=== PATIENT | male | born 1940 | race Two or more races ===

== ENCOUNTER 2017-04-28 17:32 | Inpatient (IN) | payer MEDICARE, BC ==
[2017-04-28] MEDS ORDERED: ACETAMINOPHEN 650MG/20.3ML CUP GTB (21:00)
[2017-04-28] MEDS ORDERED: morphine 2 MG INJ IV (21:30)
[2017-04-28] MEDS ORDERED: ZOLPIDEM 5 MG TAB PO (21:30)
[2017-04-28] MEDS ORDERED: NITROGLYCERIN (SL) 0.4 MG TAB SL (21:30)
[2017-04-28] MEDS: DULOXETINE 30 MG CAP DR PO (21:30)
[2017-04-28] MEDS ORDERED: ONDANSETRON 4 MG INJ IV (21:30)
[2017-04-28] MEDS ORDERED: ACETAMINOPHEN 325 MG TAB PO (21:30)
[2017-04-28] MEDS ORDERED: DIPHENHYDRAMINE 50 MG INJ IV (21:30)
[2017-04-28] MEDS ORDERED: ONDANSETRON 4 MG TAB PO (21:30)
[2017-04-28] MEDS: BUDESONIDE (NEB) 0.5MG/2ML AMP NEB (21:58)
[2017-04-28] MEDS: [UNRECOGNIZED DRUG - REMARK] XX (22:00)
[2017-04-29] MEDS ORDERED: ZOLPIDEM 5 MG TAB GTB (00:11)
[2017-04-29 00:52] LABS: ADD UMIC YES; UR ASCORBIC ACID NEGATIVE (NEGATIVE); UR BACTERIA FEW /HPF (NONE SEEN); UR BILIRUBIN (Dip) NEGATIVE (NEGATIVE); UR BLOOD (Dip) 2+ mg/dL (NEGATIVE); UR CLARITY SLIGHTLY CLOUDY (CLEAR); UR COLOR YELLOW (YELLOW); UR GLUCOSE (Dip) NEGATIVE (NEGATIVE); UR KETONES (Dip) NEGATIVE (NEGATIVE); UR LEUKOCYTE ESTERASE (Dip) TRACE Leu/ul (NEGATIVE); UR NITRITE (Dip) NEGATIVE (NEGATIVE); UR RBC 3 /HPF (0-5); UR SPECIFIC GRAVITY (Dip) 1.013 (1.003-1.030); UR TOTAL PROTEIN (Dip) 2+ mg/dl (NEGATIVE); UR UROBILINOGEN (Dip) NEGATIVE (NEGATIVE); UR WBC 38 /HPF (0-5)
[2017-04-29] MEDS ORDERED: PANTOPRAZOLE (EC) 40 MG TAB PO (06:00)
[2017-04-29] MEDS: [UNRECOGNIZED DRUG - REMARK] XX ×2 (06:00→13:35)
[2017-04-29] MEDS: PANTOPRAZOLE 40 MG INJ IV ×2 (06:09→18:15)
[2017-04-29] MEDS: BUDESONIDE (NEB) 0.5MG/2ML AMP NEB ×2 (08:14→19:24)
[2017-04-29] MEDS ORDERED: BISACODYL 10 MG SUPP PR (08:30)
[2017-04-29] MEDS ORDERED: ACETAMINOPHEN 650MG/20.3ML CUP PO (08:30)
[2017-04-29] MEDS ORDERED: LACTULOSE 30ML CUP PO (08:30)
[2017-04-29 08:56] LABS: ADD MAN DIFF? NO
[2017-04-29 09:00] LABS: WHITE BLOOD COUNT 13.7 10^3/ul (4.8-10.8)
[2017-04-29 09:00] LABS: BASOPHILS % 0.2 % (0.0-2.0); EOSINOPHILS # 0.1 10^3/ul (0.0-0.5); EOSINOPHILS % 0.4 % (0.0-7.0); HEMATOCRIT 28.3 % (42.0-52.0); HEMOGLOBIN 9.6 g/dl (14.0-18.0); LYMPHOCYTES # 3.3 10^3/ul (0.8-2.9); LYMPHOCYTES % 24.3 % (15.0-51.0); MEAN CORPUSCULAR HGB CONC 33.9 g/dl (32.0-37.0); MEAN CORPUSCULAR VOLUME 91.3 fl (82.0-101.0); MEAN PLATELET VOLUME 9.9 fl (7.4-10.4); MONOCYTES % 7.1 % (0.0-11.0); NEUTROPHIL # 9.3 10^3/ul (1.6-7.5); NEUTROPHILS % 67.6 % (39.0-77.0); PLATELET COUNT 336 10^3/UL (140-415); POSITIVE DIFF @See below; RED CELL DISTRIBUTION WIDTH 15.7 % (11.5-14.5)
[2017-04-29] MEDS ORDERED: MAGNESIUM HYDROXIDE 30ML CUP PO (09:00)
[2017-04-29] MEDS ORDERED: ONDANSETRON 4 MG TAB GTB (09:00)
[2017-04-29 09:36] LABS: ALANINE AMINOTRANSFERASE 38 IU/L (13-69); ALBUMIN 3.3 g/dl (3.3-4.9); ALBUMIN/GLOBULIN RATIO 0.89; ALKALINE PHOSPHATASE 135 IU/L (42-121); ANION GAP 16 (8-16); ASPARTATE AMINO TRANSFERASE 28 IU/L (15-46); BILIRUBIN,INDIRECT 0.7 mg/dl (0-1.1); BILIRUBIN,TOTAL 0.7 mg/dl (0.2-1.3); BLOOD UREA NITROGEN 12 mg/dl (7-20); CALCIUM 8.7 mg/dl (8.4-10.2); CARBON DIOXIDE 21 mmol/L (21-31); CHLORIDE 114 mmol/L (97-110); CREATININE 0.81 mg/dl (0.61-1.24); GLUCOSE 121 mg/dl (70-220); POTASSIUM 3.1 mmol/L (3.5-5.1); SODIUM 148 mmol/L (135-144)
[2017-04-29] MEDS: DOCUSATE SODIUM 10 MG/ML (10ML CUP) GTB ×2 (09:44→21:41)
[2017-04-29] MEDS: HEPARIN 5,000 UNIT/0.5 ML VIAL SC ×3 (09:53→21:50)
[2017-04-29] MEDS: LEVOFLOXACIN 500 MG TAB PO (12:57)
[2017-04-29] MEDS: CREON (12k-38k-60k) 1 CAP PO (18:15)
[2017-04-29] MEDS: DULOXETINE 30 MG CAP DR PO (18:15)
[2017-04-29] MEDS: SENNA TAB PO (21:41)
[2017-04-30] MEDS: LEVOFLOXACIN 500 MG TAB PO (06:04)
[2017-04-30] MEDS: PANTOPRAZOLE 40 MG INJ IV ×2 (06:04→19:07)
[2017-04-30] MEDS: HEPARIN 5,000 UNIT/0.5 ML VIAL SC ×3 (06:23→21:53)
[2017-04-30 07:55] LABS: ADD MAN DIFF? NO
[2017-04-30 08:06] LABS: WHITE BLOOD COUNT 12.7 10^3/ul (4.8-10.8)
[2017-04-30 08:06] LABS: BASOPHILS % 0.2 % (0.0-2.0); EOSINOPHILS # 0.1 10^3/ul (0.0-0.5); EOSINOPHILS % 0.7 % (0.0-7.0); HEMATOCRIT 26.9 % (42.0-52.0); HEMOGLOBIN 9.2 g/dl (14.0-18.0); LYMPHOCYTES # 3.2 10^3/ul (0.8-2.9); LYMPHOCYTES % 25.3 % (15.0-51.0); MEAN CORPUSCULAR HEMOGLOBIN 30.8 pg (29.0-33.0); MEAN CORPUSCULAR HGB CONC 34.2 g/dl (32.0-37.0); MEAN PLATELET VOLUME 9.6 fl (7.4-10.4); MONOCYTE # 0.9 10^3/ul (0.3-0.9); NEUTROPHIL # 8.4 10^3/ul (1.6-7.5); NEUTROPHILS % 66.5 % (39.0-77.0); PLATELET COUNT 322 10^3/UL (140-415); POSITIVE DIFF @See below; RED BLOOD COUNT 2.99 10^6/ul (4.70-6.10); RED CELL DISTRIBUTION WIDTH 14.6 % (11.5-14.5)
[2017-04-30 08:31] LABS: ANION GAP 15 (8-16); BLOOD UREA NITROGEN 12 mg/dl (7-20); CALCIUM 8.3 mg/dl (8.4-10.2); CARBON DIOXIDE 20 mmol/L (21-31); CHLORIDE 111 mmol/L (97-110); CREATININE 0.76 mg/dl (0.61-1.24); GLUCOSE 103 mg/dl (70-220); MAGNESIUM 1.3 mg/dl (1.7-2.5); PHOSPHORUS 3.3 mg/dl (2.5-4.9); SODIUM 143 mmol/L (135-144)
[2017-04-30 08:42] LABS: POTASSIUM 2.7 mmol/L (3.5-5.1)
[2017-04-30] MEDS: BUDESONIDE (NEB) 0.5MG/2ML AMP NEB ×2 (08:53→21:01)
[2017-04-30] MEDS: CREON (12k-38k-60k) 1 CAP PO ×3 (09:45→17:35)
[2017-04-30] MEDS: DOCUSATE SODIUM 10 MG/ML (10ML CUP) GTB ×2 (09:45→21:41)
[2017-04-30] MEDS: POTASSIUM CHLORIDE 20 MEQ POWDER FOR ORAL SOLN GTB ×2 (11:02→19:07)
[2017-04-30] MEDS: ACETAMINOPHEN 650MG/20.3ML CUP GTB ×2 (13:15→21:41)
[2017-04-30 16:35] LABS: POTASSIUM 3.4 mmol/L (3.5-5.1)
[2017-04-30] MEDS: DULOXETINE 30 MG CAP DR PO (19:07)
[2017-04-30] MEDS: SENNA TAB PO (21:41)
[2017-05-01 06:13] LABS: ADD MAN DIFF? NO
[2017-05-01 06:19] LABS: WHITE BLOOD COUNT 10.7 10^3/ul (4.8-10.8)
[2017-05-01 06:19] LABS: BASOPHILS % 0.2 % (0.0-2.0); EOSINOPHILS # 0.2 10^3/ul (0.0-0.5); EOSINOPHILS % 1.6 % (0.0-7.0); HEMATOCRIT 25.7 % (42.0-52.0); HEMOGLOBIN 8.9 g/dl (14.0-18.0); LYMPHOCYTES # 2.6 10^3/ul (0.8-2.9); LYMPHOCYTES % 23.9 % (15.0-51.0); MEAN CORPUSCULAR HEMOGLOBIN 31.1 pg (29.0-33.0); MEAN CORPUSCULAR HGB CONC 34.6 g/dl (32.0-37.0); MEAN CORPUSCULAR VOLUME 89.9 fl (82.0-101.0); MEAN PLATELET VOLUME 9.3 fl (7.4-10.4); MONOCYTE # 0.7 10^3/ul (0.3-0.9); MONOCYTES % 6.9 % (0.0-11.0); NEUTROPHIL # 7.2 10^3/ul (1.6-7.5); NEUTROPHILS % 66.8 % (39.0-77.0); PLATELET COUNT 331 10^3/UL (140-415); RED BLOOD COUNT 2.86 10^6/ul (4.70-6.10); RED CELL DISTRIBUTION WIDTH 14.5 % (11.5-14.5)
[2017-05-01 06:37] LABS: ANION GAP 14 (8-16); BLOOD UREA NITROGEN 12 mg/dl (7-20); CALCIUM 8.4 mg/dl (8.4-10.2); CARBON DIOXIDE 23 mmol/L (21-31); CHLORIDE 110 mmol/L (97-110); CREATININE 0.76 mg/dl (0.61-1.24); GLUCOSE 115 mg/dl (70-220); MAGNESIUM 1.4 mg/dl (1.7-2.5); PHOSPHORUS 3.1 mg/dl (2.5-4.9); POTASSIUM 3.4 mmol/L (3.5-5.1); SODIUM 144 mmol/L (135-144)
[2017-05-01] MEDS: PANTOPRAZOLE 40 MG INJ IV ×2 (07:01→18:20)
[2017-05-01] MEDS: LEVOFLOXACIN 500 MG TAB PO (07:01)
[2017-05-01] MEDS: HEPARIN 5,000 UNIT/0.5 ML VIAL SC ×3 (07:07→21:01)
[2017-05-01] MEDS: BUDESONIDE (NEB) 0.5MG/2ML AMP NEB ×2 (08:45→20:00)
[2017-05-01] MEDS: DOCUSATE SODIUM 10 MG/ML (10ML CUP) GTB ×2 (09:00→20:53)
[2017-05-01] MEDS: CREON (12k-38k-60k) 1 CAP PO ×3 (10:37→18:19)
[2017-05-01] MEDS: POTASSIUM CHLORIDE 20 MEQ POWDER FOR ORAL SOLN GTB ×2 (10:40→12:30)
[2017-05-01] MEDS: MAGNESIUM SULFATE 2 GM/50 ML 50 ML IVPB (10:40)
[2017-05-01] MEDS ORDERED: POTASSIUM CHLORIDE 20 MEQ POWDER FOR ORAL SOLN GTB (17:00)
[2017-05-01] MEDS: DULOXETINE 30 MG CAP DR PO (18:22)
[2017-05-01] MEDS: SENNA TAB PO (20:53)
[2017-05-02] MEDS: ACETAMINOPHEN 650MG/20.3ML CUP GTB ×2 (02:15→13:01)
[2017-05-02] MEDS: LEVOFLOXACIN 500 MG TAB PO (06:49)
[2017-05-02] MEDS: PANTOPRAZOLE 40 MG INJ IV ×2 (06:49→18:05)
[2017-05-02] MEDS: HEPARIN 5,000 UNIT/0.5 ML VIAL SC ×2 (06:56→13:20)
[2017-05-02 07:15] LABS: ADD MAN DIFF? NO
[2017-05-02 07:19] LABS: BASOPHILS % 0.2 % (0.0-2.0); EOSINOPHILS # 0.1 10^3/ul (0.0-0.5); EOSINOPHILS % 1.1 % (0.0-7.0); HEMATOCRIT 26.2 % (42.0-52.0); HEMOGLOBIN 8.9 g/dl (14.0-18.0); LYMPHOCYTES # 2.9 10^3/ul (0.8-2.9); LYMPHOCYTES % 24.1 % (15.0-51.0); MEAN CORPUSCULAR HEMOGLOBIN 30.7 pg (29.0-33.0); MEAN CORPUSCULAR VOLUME 90.3 fl (82.0-101.0); MEAN PLATELET VOLUME 9.6 fl (7.4-10.4); MONOCYTE # 0.9 10^3/ul (0.3-0.9); MONOCYTES % 7.3 % (0.0-11.0); NEUTROPHILS % 66.6 % (39.0-77.0); PLATELET COUNT 360 10^3/UL (140-415)
[2017-05-02 07:52] LABS: ANION GAP 17 (8-16); BLOOD UREA NITROGEN 10 mg/dl (7-20); CALCIUM 8.3 mg/dl (8.4-10.2); CARBON DIOXIDE 21 mmol/L (21-31); CHLORIDE 109 mmol/L (97-110); CREATININE 0.74 mg/dl (0.61-1.24); GLUCOSE 121 mg/dl (70-220); MAGNESIUM 1.7 mg/dl (1.7-2.5); PHOSPHORUS 3.6 mg/dl (2.5-4.9); POTASSIUM 3.5 mmol/L (3.5-5.1); SODIUM 143 mmol/L (135-144)
[2017-05-02] MEDS: BUDESONIDE (NEB) 0.5MG/2ML AMP NEB ×2 (08:00→20:00)
[2017-05-02] MEDS: CREON (12k-38k-60k) 1 CAP PO ×3 (08:53→18:01)
[2017-05-02] MEDS: DOCUSATE SODIUM 10 MG/ML (10ML CUP) GTB (08:53)
[2017-05-02] MEDS ORDERED: ZOLPIDEM 5 MG TAB PO (18:00)
[2017-05-02] MEDS: DULOXETINE 30 MG CAP DR PO (18:01)
== END 2017-05-02 20:45 | disposition short-term general hospital (02) | DRG 92 ==
LOC: VRC 17:32
DX: G92 Toxic encephalopathy (principal); N17.9 Acute kidney failure, unspecified; R13.10 Dysphagia, unspecified; Z93.1 Gastrostomy status; T81.31XA Disruption of external operation (surgical) wound, not elsewhere classified, initial encounter; I10 Essential (primary) hypertension; M79.7 Fibromyalgia; M54.5 Low back pain; E66.9 Obesity, unspecified; Z68.34 Body mass index [BMI] 34.0-34.9, adult; G31.84 Mild cognitive impairment of uncertain or unknown etiology; Z74.09 Other reduced mobility; F06.31 Mood disorder due to known physiological condition with depressive features; F06.8 Other specified mental disorders due to known physiological condition
CPT/HCPCS: 80048; 80053; 81001; 83735; 84100; 84132; 85025; 87081; 87086; 92523; 92526; 92610; 94640; 94664; 97110; 97112; 97163; 97167; 97530; 97535

== ENCOUNTER 2017-05-02 21:53 | Inpatient (IN) | payer MEDICARE, BC ==
[2017-05-02] MEDS ORDERED: ONDANSETRON 4 MG INJ IV (23:30)
[2017-05-02] MEDS: LEVOFLOXACIN 500MG/D5W (PMX) 100 ML IVPB (23:30)
[2017-05-02] MEDS: DEXTROSE 5%-0.45% NACL 1,000 ML IV (23:33)
[2017-05-03] MEDS: PANTOPRAZOLE 40 MG INJ IV (06:40)
[2017-05-03] MEDS: LEVOFLOXACIN 500MG/D5W (PMX) 100 ML IVPB ×2 (06:41→23:43)
[2017-05-03 08:28] LABS: ADD MAN DIFF? NO
[2017-05-03 08:54] LABS: ANION GAP 15 (8-16); BLOOD UREA NITROGEN 8 mg/dl (7-20); CALCIUM 8.3 mg/dl (8.4-10.2); CARBON DIOXIDE 21 mmol/L (21-31); CHLORIDE 112 mmol/L (97-110); CREATININE 0.71 mg/dl (0.61-1.24); GLUCOSE 115 mg/dl (70-220); SODIUM 145 mmol/L (135-144)
[2017-05-03] MEDS ORDERED: BISACODYL 10 MG SUPP PR (09:00)
[2017-05-03] MEDS: DOCUSATE SODIUM 10 MG/ML (10ML CUP) PO ×2 (09:20→20:57)
[2017-05-03] MEDS: DULOXETINE 30 MG CAP DR PO (09:21)
[2017-05-03] MEDS ORDERED: D5W-0.45 NACL + KCL 10 MEQ 1,000 ML IV (09:30)
[2017-05-03 10:28] LABS: WHITE BLOOD COUNT 11.7 10^3/ul (4.8-10.8)
[2017-05-03 10:28] LABS: BASOPHILS % 0.2 % (0.0-2.0); EOSINOPHILS # 0.2 10^3/ul (0.0-0.5); EOSINOPHILS % 1.4 % (0.0-7.0); HEMATOCRIT 26.4 % (42.0-52.0); HEMOGLOBIN 8.9 g/dl (14.0-18.0); LYMPHOCYTES # 3.1 10^3/ul (0.8-2.9); LYMPHOCYTES % 26.7 % (15.0-51.0); MEAN CORPUSCULAR HEMOGLOBIN 30.4 pg (29.0-33.0); MEAN CORPUSCULAR HGB CONC 33.7 g/dl (32.0-37.0); MEAN CORPUSCULAR VOLUME 90.1 fl (82.0-101.0); MEAN PLATELET VOLUME 9.3 fl (7.4-10.4); MONOCYTE # 0.8 10^3/ul (0.3-0.9); NEUTROPHIL # 7.4 10^3/ul (1.6-7.5); NEUTROPHILS % 63.8 % (39.0-77.0); PLATELET COUNT 426 10^3/UL (140-415); RED BLOOD COUNT 2.93 10^6/ul (4.70-6.10)
[2017-05-03] MEDS: BUDESONIDE (NEB) 0.25 MG/2 ML AMP HHN ×2 (11:00→20:00)
[2017-05-03] MEDS: CREON (12k-38k-60k) 1 CAP PO ×2 (11:28→17:36)
[2017-05-03] MEDS: POTASSIUM CHLORIDE 100 ML IVPB (11:28)
[2017-05-03] MEDS: D5W-0.45 NACL + KCL 10 MEQ 1,000 ML IV ×2 (11:28→23:12)
[2017-05-03] MEDS: IOHEXOL 300MG/ML 150 ML BTL (12:29)
[2017-05-03] MEDS: SOD CHLORIDE 0.9% 100 ML (12:29)
[2017-05-03] MEDS: ZOLPIDEM 5 MG TAB PO (20:57)
[2017-05-04] MEDS: BUDESONIDE (NEB) 0.25 MG/2 ML AMP HHN ×3 (00:01→20:00)
[2017-05-04] MEDS: ACETAMINOPHEN 500 MG TAB PO (03:42)
[2017-05-04] MEDS: PANTOPRAZOLE 40 MG INJ IV (05:44)
[2017-05-04] MEDS: D5W-0.45 NACL + KCL 10 MEQ 1,000 ML IV (05:46)
[2017-05-04 05:57] LABS: ADD MAN DIFF? NO
[2017-05-04 06:07] LABS: BASOPHILS % 0.2 % (0.0-2.0); EOSINOPHILS # 0.2 10^3/ul (0.0-0.5); EOSINOPHILS % 1.3 % (0.0-7.0); HEMATOCRIT 25.9 % (42.0-52.0); HEMOGLOBIN 8.9 g/dl (14.0-18.0); LYMPHOCYTES # 3.2 10^3/ul (0.8-2.9); LYMPHOCYTES % 24.9 % (15.0-51.0); MEAN CORPUSCULAR HEMOGLOBIN 30.8 pg (29.0-33.0); MEAN CORPUSCULAR HGB CONC 34.4 g/dl (32.0-37.0); MEAN CORPUSCULAR VOLUME 89.6 fl (82.0-101.0); MEAN PLATELET VOLUME 8.9 fl (7.4-10.4); MONOCYTE # 0.9 10^3/ul (0.3-0.9); MONOCYTES % 7.1 % (0.0-11.0); NEUTROPHIL # 8.3 10^3/ul (1.6-7.5); NEUTROPHILS % 65.4 % (39.0-77.0); PLATELET COUNT 404 10^3/UL (140-415); RED BLOOD COUNT 2.89 10^6/ul (4.70-6.10); RED CELL DISTRIBUTION WIDTH 15.2 % (11.5-14.5)
[2017-05-04 06:07] LABS: WHITE BLOOD COUNT 12.6 10^3/ul (4.8-10.8)
[2017-05-04 06:18] LABS: ANION GAP 15 (8-16); BLOOD UREA NITROGEN 6 mg/dl (7-20); CALCIUM 8.2 mg/dl (8.4-10.2); CARBON DIOXIDE 23 mmol/L (21-31); CHLORIDE 110 mmol/L (97-110); CREATININE 0.69 mg/dl (0.61-1.24); GLUCOSE 102 mg/dl (70-220); MAGNESIUM 1.4 mg/dl (1.7-2.5); SODIUM 145 mmol/L (135-144)
[2017-05-04 08:30] LABS: ALANINE AMINOTRANSFERASE 38 IU/L (13-69); ALBUMIN 3.1 g/dl (3.3-4.9); ALKALINE PHOSPHATASE 103 IU/L (42-121); ASPARTATE AMINO TRANSFERASE 33 IU/L (15-46); BILIRUBIN,INDIRECT 0.3 mg/dl (0-1.1); BILIRUBIN,TOTAL 0.3 mg/dl (0.2-1.3); TOTAL PROTEIN 6.7 g/dl (6.1-8.1)
[2017-05-04] MEDS: DOCUSATE SODIUM 10 MG/ML (10ML CUP) PO ×2 (08:58→21:14)
[2017-05-04] MEDS: D5W-0.45 NACL + KCL 20 MEQ 1,000 ML IV (08:58)
[2017-05-04] MEDS: POTASSIUM CHLORIDE 20 MEQ POWDER FOR ORAL SOLN GTB (08:58)
[2017-05-04] MEDS: CREON (12k-38k-60k) 1 CAP PO ×3 (08:59→17:45)
[2017-05-04] MEDS: DULOXETINE 30 MG CAP DR PO (08:59)
[2017-05-04] MEDS: MAGNESIUM SULFATE 2 GM/50 ML 50 ML IVPB (09:23)
[2017-05-04] MEDS ORDERED: VANCOMYCIN IV PER PHARMACY XX (14:30)
[2017-05-04 16:09] LABS: ANION GAP 16 (8-16); BLOOD UREA NITROGEN 5 mg/dl (7-20); CALCIUM 8.6 mg/dl (8.4-10.2); CARBON DIOXIDE 24 mmol/L (21-31); CHLORIDE 109 mmol/L (97-110); CREATININE 0.69 mg/dl (0.61-1.24); GLUCOSE 122 mg/dl (70-220); POTASSIUM 3.7 mmol/L (3.5-5.1); SODIUM 145 mmol/L (135-144)
[2017-05-04] MEDS: VANCOMYCIN 2 GM in SOD CHLORIDE 0.9% 500 ML IVPB (17:45)
[2017-05-04] MEDS: IOHEXOL 300MG/ML 150 ML BTL (19:00)
[2017-05-04] MEDS: ZOLPIDEM 5 MG TAB PO (21:14)
[2017-05-04] MEDS: LEVOFLOXACIN 500MG/D5W (PMX) 100 ML IVPB (23:17)
[2017-05-05] MEDS: D5W-0.45 NACL + KCL 20 MEQ 1,000 ML IV (04:30)
[2017-05-05] MEDS: VANCOMYCIN 1 GM 250 ML IVPB ×2 (04:34→17:27)
[2017-05-05] MEDS: PANTOPRAZOLE 40 MG INJ IV (06:10)
[2017-05-05 06:38] LABS: ADD MAN DIFF? NO
[2017-05-05 06:49] LABS: BASOPHILS % 0.3 % (0.0-2.0); EOSINOPHILS # 0.3 10^3/ul (0.0-0.5); EOSINOPHILS % 2.3 % (0.0-7.0); HEMATOCRIT 27.8 % (42.0-52.0); HEMOGLOBIN 9.5 g/dl (14.0-18.0); LYMPHOCYTES # 3.1 10^3/ul (0.8-2.9); LYMPHOCYTES % 26.6 % (15.0-51.0); MEAN CORPUSCULAR HEMOGLOBIN 30.7 pg (29.0-33.0); MEAN CORPUSCULAR HGB CONC 34.2 g/dl (32.0-37.0); MEAN PLATELET VOLUME 8.8 fl (7.4-10.4); MONOCYTE # 0.8 10^3/ul (0.3-0.9); MONOCYTES % 6.8 % (0.0-11.0); NEUTROPHIL # 7.3 10^3/ul (1.6-7.5); NEUTROPHILS % 62.4 % (39.0-77.0); PLATELET COUNT 479 10^3/UL (140-415); RED BLOOD COUNT 3.09 10^6/ul (4.70-6.10); RED CELL DISTRIBUTION WIDTH 15.2 % (11.5-14.5)
[2017-05-05 06:49] LABS: WHITE BLOOD COUNT 11.7 10^3/ul (4.8-10.8)
[2017-05-05 07:26] LABS: POTASSIUM 3.2 mmol/L (3.5-5.1)
[2017-05-05 07:27] LABS: BLOOD UREA NITROGEN 6 mg/dl (7-20); CALCIUM 8.2 mg/dl (8.4-10.2); CARBON DIOXIDE 23 mmol/L (21-31); CHLORIDE 110 mmol/L (97-110); CREATININE 0.64 mg/dl (0.61-1.24); GLUCOSE 95 mg/dl (70-220); MAGNESIUM 1.7 mg/dl (1.7-2.5); PHOSPHORUS 3.2 mg/dl (2.5-4.9); SODIUM 146 mmol/L (135-144)
[2017-05-05 07:29] LABS: ANION GAP 16 (8-16)
[2017-05-05] MEDS: CREON (12k-38k-60k) 1 CAP PO ×3 (07:35→17:28)
[2017-05-05] MEDS: BUDESONIDE (NEB) 0.25 MG/2 ML AMP HHN ×2 (08:49→19:58)
[2017-05-05] MEDS: DOCUSATE SODIUM 10 MG/ML (10ML CUP) PO ×2 (09:00→20:34)
[2017-05-05] MEDS: DULOXETINE 30 MG CAP DR PO ×2 (09:00→20:34)
[2017-05-05] MEDS: POTASSIUM CHLORIDE 20 MEQ POWDER FOR ORAL SOLN GTB (09:57)
[2017-05-05] MEDS: MAGNESIUM SULFATE 2 GM/50 ML 50 ML IVPB (11:15)
[2017-05-05] MEDS: ACETAMINOPHEN 500 MG TAB PO ×2 (13:07→23:13)
[2017-05-05] MEDS: ZOLPIDEM 5 MG TAB PO (22:05)
[2017-05-05] MEDS: LEVOFLOXACIN 500MG/D5W (PMX) 100 ML IVPB (23:23)
[2017-05-06 05:00] LABS: VANCOMYCIN,TROUGH 14.6 ug/ml (10.0-20.0)
[2017-05-06] MEDS: VANCOMYCIN 1 GM 250 ML IVPB ×2 (05:41→20:23)
[2017-05-06] MEDS: PANTOPRAZOLE 40 MG INJ IV (05:41)
[2017-05-06] MEDS: BUDESONIDE (NEB) 0.25 MG/2 ML AMP HHN ×2 (08:00→20:29)
[2017-05-06] MEDS: DOCUSATE SODIUM 10 MG/ML (10ML CUP) PO ×2 (08:48→20:23)
[2017-05-06] MEDS: CREON (12k-38k-60k) 1 CAP PO ×3 (08:48→17:06)
[2017-05-06 11:22] LABS: ADD MAN DIFF? NO
[2017-05-06 11:26] LABS: WHITE BLOOD COUNT 11.2 10^3/ul (4.8-10.8)
[2017-05-06 11:26] LABS: BASOPHILS % 0.4 % (0.0-2.0); EOSINOPHILS # 0.3 10^3/ul (0.0-0.5); EOSINOPHILS % 2.8 % (0.0-7.0); HEMATOCRIT 27.1 % (42.0-52.0); HEMOGLOBIN 9.1 g/dl (14.0-18.0); LYMPHOCYTES # 3.1 10^3/ul (0.8-2.9); LYMPHOCYTES % 28.1 % (15.0-51.0); MEAN CORPUSCULAR HEMOGLOBIN 30.6 pg (29.0-33.0); MEAN CORPUSCULAR HGB CONC 33.6 g/dl (32.0-37.0); MEAN CORPUSCULAR VOLUME 91.2 fl (82.0-101.0); MEAN PLATELET VOLUME 8.6 fl (7.4-10.4); MONOCYTE # 0.7 10^3/ul (0.3-0.9); MONOCYTES % 6.4 % (0.0-11.0); NEUTROPHIL # 6.8 10^3/ul (1.6-7.5); NEUTROPHILS % 60.7 % (39.0-77.0); PLATELET COUNT 503 10^3/UL (140-415); RED BLOOD COUNT 2.97 10^6/ul (4.70-6.10); RED CELL DISTRIBUTION WIDTH 15.4 % (11.5-14.5)
[2017-05-06 11:47] LABS: ANION GAP 14 (8-16); BLOOD UREA NITROGEN 4 mg/dl (7-20); CARBON DIOXIDE 22 mmol/L (21-31); CHLORIDE 110 mmol/L (97-110); GLUCOSE 119 mg/dl (70-220); MAGNESIUM 1.6 mg/dl (1.7-2.5); POTASSIUM 3.1 mmol/L (3.5-5.1); SODIUM 143 mmol/L (135-144)
[2017-05-06 13:52] LABS: INR 1.03; PROTIME 13.6 Sec (11.9-14.9); PT RATIO 1.1
[2017-05-06] MEDS: POTASSIUM CHLORIDE (SR) 20 MEQ TAB PO (16:08)
[2017-05-06] MEDS: MAGNESIUM SULFATE 2 GM/50 ML 50 ML IVPB (17:28)
[2017-05-06] MEDS: LIDOCAINE 1%/EPI 30 ML INJ INJ (18:45)
[2017-05-06] MEDS: POTASSIUM CHLORIDE 20 MEQ POWDER FOR ORAL SOLN PO (20:22)
[2017-05-06] MEDS: DULOXETINE 30 MG CAP DR PO (20:23)
[2017-05-06] MEDS: SILVER NITRATE SWAB TOP (22:12)
[2017-05-06] MEDS: LEVOFLOXACIN 500MG/D5W (PMX) 100 ML IVPB (22:57)
[2017-05-06] MEDS: ZOLPIDEM 5 MG TAB PO (22:57)
[2017-05-07] MEDS ORDERED: DIPHENHYDRAMINE 25 MG CAP PO (00:30)
[2017-05-07 00:31] LABS: ADD MAN DIFF? NO
[2017-05-07 00:49] LABS: BASOPHIL # 0.1 10^3/ul (0.0-0.1); BASOPHILS % 0.4 % (0.0-2.0); EOSINOPHILS # 0.2 10^3/ul (0.0-0.5); EOSINOPHILS % 1.8 % (0.0-7.0); HEMATOCRIT 26.1 % (42.0-52.0); HEMOGLOBIN 8.9 g/dl (14.0-18.0); LYMPHOCYTES # 2.9 10^3/ul (0.8-2.9); LYMPHOCYTES % 24.8 % (15.0-51.0); MEAN CORPUSCULAR HEMOGLOBIN 30.9 pg (29.0-33.0); MEAN CORPUSCULAR HGB CONC 34.1 g/dl (32.0-37.0); MEAN CORPUSCULAR VOLUME 90.6 fl (82.0-101.0); MEAN PLATELET VOLUME 8.5 fl (7.4-10.4); MONOCYTE # 0.7 10^3/ul (0.3-0.9); MONOCYTES % 6.1 % (0.0-11.0); NEUTROPHIL # 7.6 10^3/ul (1.6-7.5); NEUTROPHILS % 65.8 % (39.0-77.0); PLATELET COUNT 504 10^3/UL (140-415); RED BLOOD COUNT 2.88 10^6/ul (4.70-6.10); RED CELL DISTRIBUTION WIDTH 15.6 % (11.5-14.5)
[2017-05-07 00:49] LABS: WHITE BLOOD COUNT 11.6 10^3/ul (4.8-10.8)
[2017-05-07] MEDS: VANCOMYCIN 1 GM 250 ML IVPB (05:27)
[2017-05-07] MEDS: PANTOPRAZOLE 40 MG INJ IV (05:27)
[2017-05-07] MEDS: ACETAMINOPHEN 500 MG TAB PO (06:28)
[2017-05-07] MEDS: LACTULOSE 30ML CUP PO (06:35)
[2017-05-07 06:49] LABS: ADD MAN DIFF? NO
[2017-05-07 06:53] LABS: BASOPHILS % 0.2 % (0.0-2.0); EOSINOPHILS # 0.3 10^3/ul (0.0-0.5); EOSINOPHILS % 2.2 % (0.0-7.0); HEMATOCRIT 28.2 % (42.0-52.0); HEMOGLOBIN 9.4 g/dl (14.0-18.0); LYMPHOCYTES # 3.4 10^3/ul (0.8-2.9); MEAN CORPUSCULAR HEMOGLOBIN 30.5 pg (29.0-33.0); MEAN CORPUSCULAR HGB CONC 33.3 g/dl (32.0-37.0); MEAN CORPUSCULAR VOLUME 91.6 fl (82.0-101.0); MEAN PLATELET VOLUME 8.3 fl (7.4-10.4); MONOCYTE # 0.6 10^3/ul (0.3-0.9); MONOCYTES % 5.3 % (0.0-11.0); NEUTROPHIL # 7.6 10^3/ul (1.6-7.5); NEUTROPHILS % 63.4 % (39.0-77.0); PLATELET COUNT 513 10^3/UL (140-415); RED BLOOD COUNT 3.08 10^6/ul (4.70-6.10); RED CELL DISTRIBUTION WIDTH 15.4 % (11.5-14.5)
[2017-05-07 06:53] LABS: WHITE BLOOD COUNT 12.1 10^3/ul (4.8-10.8)
[2017-05-07 07:14] LABS: ANION GAP 14 (8-16); BLOOD UREA NITROGEN 5 mg/dl (7-20); CALCIUM 8.4 mg/dl (8.4-10.2); CARBON DIOXIDE 24 mmol/L (21-31); CHLORIDE 110 mmol/L (97-110); CREATININE 0.73 mg/dl (0.61-1.24); GLUCOSE 103 mg/dl (70-220); MAGNESIUM 1.9 mg/dl (1.7-2.5); PHOSPHORUS 3.1 mg/dl (2.5-4.9); POTASSIUM 3.9 mmol/L (3.5-5.1); SODIUM 144 mmol/L (135-144)
[2017-05-07] MEDS: BUDESONIDE (NEB) 0.25 MG/2 ML AMP HHN ×2 (08:00→19:54)
[2017-05-07] MEDS: CREON (12k-38k-60k) 1 CAP PO ×3 (08:44→18:16)
[2017-05-07] MEDS: DOCUSATE SODIUM 10 MG/ML (10ML CUP) PO ×2 (08:45→21:33)
[2017-05-07] MEDS: SODIUM HYPOCHLORITE 0.125% 473 ML BTL IRR ×2 (08:45→11:28)
[2017-05-07] MEDS ORDERED: DIPHENHYDRAMINE 2.5 MG/ML 5ML CUP PO (18:30)
[2017-05-07 19:36] LABS: OCCULT BLOOD STOOL NEGATIVE (NEGATIVE)
[2017-05-07] MEDS ORDERED: [UNRECOGNIZED DRUG - OTHER] PO (21:00)
[2017-05-07] MEDS: L ACIDOPHIL/B LACTIS/B LONGUM CAPSULE PO (21:33)
[2017-05-07] MEDS: DULOXETINE 30 MG CAP DR PO (21:33)
[2017-05-07] MEDS ORDERED: [UNRECOGNIZED DRUG - OTHER] PO (22:00)
[2017-05-07] MEDS ORDERED: DIPHENHYDRAMINE PO (22:00)
[2017-05-07] MEDS: LEVOFLOXACIN 500MG/D5W (PMX) 100 ML IVPB (23:31)
[2017-05-08] MEDS: PANTOPRAZOLE 40 MG INJ IV (05:37)
[2017-05-08 06:34] LABS: ADD MAN DIFF? NO
[2017-05-08 06:41] LABS: BASOPHILS % 0.2 % (0.0-2.0); EOSINOPHILS # 0.3 10^3/ul (0.0-0.5); EOSINOPHILS % 1.9 % (0.0-7.0); HEMATOCRIT 29.2 % (42.0-52.0); HEMOGLOBIN 9.6 g/dl (14.0-18.0); LYMPHOCYTES # 3.7 10^3/ul (0.8-2.9); LYMPHOCYTES % 24.6 % (15.0-51.0); MEAN CORPUSCULAR HEMOGLOBIN 30.3 pg (29.0-33.0); MEAN CORPUSCULAR HGB CONC 32.9 g/dl (32.0-37.0); MEAN CORPUSCULAR VOLUME 92.1 fl (82.0-101.0); MEAN PLATELET VOLUME 8.5 fl (7.4-10.4); MONOCYTE # 0.8 10^3/ul (0.3-0.9); NEUTROPHIL # 10.1 10^3/ul (1.6-7.5); NEUTROPHILS % 67.4 % (39.0-77.0); PLATELET COUNT 551 10^3/UL (140-415); RED BLOOD COUNT 3.17 10^6/ul (4.70-6.10); RED CELL DISTRIBUTION WIDTH 15.6 % (11.5-14.5)
[2017-05-08 06:41] LABS: WHITE BLOOD COUNT 14.9 10^3/ul (4.8-10.8)
[2017-05-08 07:30] LABS: ANION GAP 14 (8-16); BLOOD UREA NITROGEN 5 mg/dl (7-20); CALCIUM 8.6 mg/dl (8.4-10.2); CARBON DIOXIDE 26 mmol/L (21-31); CHLORIDE 108 mmol/L (97-110); CREATININE 0.71 mg/dl (0.61-1.24); GLUCOSE 117 mg/dl (70-220); MAGNESIUM 1.6 mg/dl (1.7-2.5); PHOSPHORUS 3.7 mg/dl (2.5-4.9); POTASSIUM 3.8 mmol/L (3.5-5.1); SODIUM 144 mmol/L (135-144)
[2017-05-08] MEDS: BUDESONIDE (NEB) 0.25 MG/2 ML AMP HHN (07:37)
[2017-05-08] MEDS: CREON (12k-38k-60k) 1 CAP PO ×3 (09:18→17:35)
[2017-05-08] MEDS: DOCUSATE SODIUM 10 MG/ML (10ML CUP) PO (09:18)
[2017-05-08] MEDS: L ACIDOPHIL/B LACTIS/B LONGUM CAPSULE PO (09:18)
[2017-05-08] MEDS: SODIUM HYPOCHLORITE 0.125% 473 ML BTL IRR (09:18)
[2017-05-08] MEDS: MAGNESIUM SULFATE 2 GM/50 ML 50 ML IVPB (09:46)
== END 2017-05-08 17:40 | DRG 901 ==
LOC: PP2 21:53
PROC: 0JB80ZZ Excision of Abdomen Subcutaneous Tissue and Fascia, Open Approach (ICD-10-PCS; principal; 2017-05-06)
DX: T81.31XA Disruption of external operation (surgical) wound, not elsewhere classified, initial encounter (principal); J96.90 Respiratory failure, unspecified, unspecified whether with hypoxia or hypercapnia; J69.0 Pneumonitis due to inhalation of food and vomit; G92 Toxic encephalopathy; N17.9 Acute kidney failure, unspecified; E87.0 Hyperosmolality and hypernatremia; L02.211 Cutaneous abscess of abdominal wall; Y83.8 Other surgical procedures as the cause of abnormal reaction of the patient, or of later complication, without mention of misadventure at the time of the procedure; Y92.019 Unspecified place in single-family (private) house as the place of occurrence of the external cause; I10 Essential (primary) hypertension; R13.10 Dysphagia, unspecified; M79.7 Fibromyalgia; K59.00 Constipation, unspecified; E87.6 Hypokalemia; E83.42 Hypomagnesemia; B96.20 Unspecified Escherichia coli [E. coli] as the cause of diseases classified elsewhere; R62.7 Adult failure to thrive
CPT/HCPCS: 49424; 74177; 80048; 80076; 80202; 82270; 83735; 84100; 85025; 85610; 87070; 92526; 92610; 94640; 94664; 97110; 97162; 97166; 97530

== ENCOUNTER 2017-05-08 18:35 | Inpatient (IN) | payer MEDICARE, BC ==
[2017-05-08] MEDS ORDERED: BISACODYL 10 MG SUPP PR (20:22)
[2017-05-08] MEDS ORDERED: LACTULOSE 30ML CUP PO (20:22)
[2017-05-08] MEDS ORDERED: ONDANSETRON 4 MG INJ IV (20:22)
[2017-05-08] MEDS: DOCUSATE SODIUM 10 MG/ML (10ML CUP) PO (22:29)
[2017-05-08] MEDS: LEVOFLOXACIN 500MG/D5W (PMX) 100 ML IVPB (22:29)
[2017-05-08] MEDS: DULOXETINE 30 MG CAP DR PO (22:30)
[2017-05-08] MEDS: L ACIDOPHIL/B LACTIS/B LONGUM CAPSULE PO (22:30)
[2017-05-09 00:18] LABS: ADD UMIC NO; UR ASCORBIC ACID NEGATIVE (NEGATIVE); UR BILIRUBIN (Dip) NEGATIVE (NEGATIVE); UR BLOOD (Dip) NEGATIVE (NEGATIVE); UR CLARITY CLEAR (CLEAR); UR COLOR STRAW (YELLOW); UR GLUCOSE (Dip) NEGATIVE (NEGATIVE); UR KETONES (Dip) NEGATIVE (NEGATIVE); UR LEUKOCYTE ESTERASE (Dip) NEGATIVE Leu/ul (NEGATIVE); UR NITRITE (Dip) NEGATIVE (NEGATIVE); UR SPECIFIC GRAVITY (Dip) 1.003 (1.003-1.030); UR TOTAL PROTEIN (Dip) NEGATIVE (NEGATIVE); UR UROBILINOGEN (Dip) NEGATIVE (NEGATIVE)
[2017-05-09] MEDS ORDERED: MAGNESIUM HYDROXIDE 30ML CUP PO (03:30)
[2017-05-09] MEDS: PANTOPRAZOLE 40 MG INJ IV (06:01)
[2017-05-09 07:32] LABS: ADD MAN DIFF? NO
[2017-05-09 07:39] LABS: WHITE BLOOD COUNT 13.7 10^3/ul (4.8-10.8)
[2017-05-09 07:39] LABS: BASOPHIL # 0.1 10^3/ul (0.0-0.1); BASOPHILS % 0.4 % (0.0-2.0); EOSINOPHILS # 0.3 10^3/ul (0.0-0.5); EOSINOPHILS % 1.9 % (0.0-7.0); HEMATOCRIT 28.2 % (42.0-52.0); HEMOGLOBIN 9.5 g/dl (14.0-18.0); LYMPHOCYTES # 3.7 10^3/ul (0.8-2.9); LYMPHOCYTES % 27.2 % (15.0-51.0); MEAN CORPUSCULAR HEMOGLOBIN 30.8 pg (29.0-33.0); MEAN CORPUSCULAR HGB CONC 33.7 g/dl (32.0-37.0); MEAN CORPUSCULAR VOLUME 91.6 fl (82.0-101.0); MEAN PLATELET VOLUME 8.5 fl (7.4-10.4); MONOCYTE # 0.6 10^3/ul (0.3-0.9); MONOCYTES % 4.7 % (0.0-11.0); NEUTROPHILS % 65.2 % (39.0-77.0); PLATELET COUNT 505 10^3/UL (140-415); RED BLOOD COUNT 3.08 10^6/ul (4.70-6.10)
[2017-05-09] MEDS: CREON (12k-38k-60k) 1 CAP PO ×3 (08:00→18:21)
[2017-05-09 08:07] LABS: ALANINE AMINOTRANSFERASE 28 IU/L (13-69); ALBUMIN/GLOBULIN RATIO 0.83; ALKALINE PHOSPHATASE 99 IU/L (42-121); ANION GAP 13 (8-16); ASPARTATE AMINO TRANSFERASE 26 IU/L (15-46); BILIRUBIN,INDIRECT 0.2 mg/dl (0-1.1); BILIRUBIN,TOTAL 0.2 mg/dl (0.2-1.3); BLOOD UREA NITROGEN 8 mg/dl (7-20); CALCIUM 8.5 mg/dl (8.4-10.2); CARBON DIOXIDE 24 mmol/L (21-31); CHLORIDE 110 mmol/L (97-110); CREATININE 0.77 mg/dl (0.61-1.24); GLUCOSE 99 mg/dl (70-220); POTASSIUM 3.7 mmol/L (3.5-5.1); SODIUM 143 mmol/L (135-144); TOTAL PROTEIN 6.6 g/dl (6.1-8.1)
[2017-05-09] MEDS: BUDESONIDE (NEB) 0.25 MG/2 ML AMP HHN ×2 (10:02→20:24)
[2017-05-09] MEDS: L ACIDOPHIL/B LACTIS/B LONGUM CAPSULE PO ×2 (12:52→21:27)
[2017-05-09] MEDS: DOCUSATE SODIUM 10 MG/ML (10ML CUP) PO ×2 (12:53→21:27)
[2017-05-09] MEDS: SODIUM HYPOCHLORITE 0.125% 473 ML BTL IRR (18:52)
[2017-05-09 20:01] LABS: OCCULT BLOOD STOOL NEGATIVE (NEGATIVE)
[2017-05-09] MEDS: SENNA TAB PO (21:27)
[2017-05-09] MEDS: LEVOFLOXACIN 500MG/D5W (PMX) 100 ML IVPB (21:27)
[2017-05-09] MEDS: DULOXETINE 30 MG CAP DR PO (21:27)
[2017-05-10] MEDS: DIPHENHYDRAMINE 25 MG CAP PO ×2 (01:22→21:35)
[2017-05-10] MEDS: PANTOPRAZOLE (EC) 40 MG TAB PO (06:21)
[2017-05-10] MEDS: CREON (12k-38k-60k) 1 CAP PO ×3 (08:50→18:00)
[2017-05-10] MEDS: DOCUSATE SODIUM 10 MG/ML (10ML CUP) PO ×2 (08:50→21:19)
[2017-05-10] MEDS: L ACIDOPHIL/B LACTIS/B LONGUM CAPSULE PO ×2 (08:50→21:19)
[2017-05-10] MEDS: SODIUM HYPOCHLORITE 0.125% 473 ML BTL IRR (08:51)
[2017-05-10] MEDS: BUDESONIDE (NEB) 0.25 MG/2 ML AMP HHN ×2 (09:25→19:32)
[2017-05-10] MEDS: ACETAMINOPHEN 500 MG TAB PO (09:57)
[2017-05-10] MEDS: SENNA TAB PO (21:19)
[2017-05-10] MEDS: DULOXETINE 30 MG CAP DR PO (21:19)
[2017-05-10] MEDS: FLUCONAZOLE 200 MG TAB PO (21:25)
[2017-05-10] MEDS: LEVOFLOXACIN 500MG/D5W (PMX) 100 ML IVPB (21:27)
[2017-05-11] MEDS: ACETAMINOPHEN 500 MG TAB PO (02:45)
[2017-05-11] MEDS: PANTOPRAZOLE (EC) 40 MG TAB PO (06:32)
[2017-05-11 06:57] LABS: ADD MAN DIFF? NO
[2017-05-11 06:59] LABS: BASOPHIL # 0.1 10^3/ul (0.0-0.1); BASOPHILS % 0.4 % (0.0-2.0); EOSINOPHILS # 0.3 10^3/ul (0.0-0.5); EOSINOPHILS % 2.2 % (0.0-7.0); HEMATOCRIT 28.2 % (42.0-52.0); HEMOGLOBIN 9.4 g/dl (14.0-18.0); LYMPHOCYTES # 3.7 10^3/ul (0.8-2.9); LYMPHOCYTES % 30.3 % (15.0-51.0); MEAN CORPUSCULAR HEMOGLOBIN 30.9 pg (29.0-33.0); MEAN CORPUSCULAR HGB CONC 33.3 g/dl (32.0-37.0); MEAN CORPUSCULAR VOLUME 92.8 fl (82.0-101.0); MEAN PLATELET VOLUME 8.4 fl (7.4-10.4); MONOCYTE # 0.6 10^3/ul (0.3-0.9); NEUTROPHIL # 7.5 10^3/ul (1.6-7.5); NEUTROPHILS % 61.4 % (39.0-77.0); PLATELET COUNT 512 10^3/UL (140-415); RED BLOOD COUNT 3.04 10^6/ul (4.70-6.10); RED CELL DISTRIBUTION WIDTH 15.3 % (11.5-14.5)
[2017-05-11 06:59] LABS: WHITE BLOOD COUNT 12.2 10^3/ul (4.8-10.8)
[2017-05-11 07:30] LABS: ANION GAP 16 (8-16); BLOOD UREA NITROGEN 10 mg/dl (7-20); CALCIUM 9.1 mg/dl (8.4-10.2); CARBON DIOXIDE 26 mmol/L (21-31); CHLORIDE 107 mmol/L (97-110); CREATININE 0.84 mg/dl (0.61-1.24); GLUCOSE 99 mg/dl (70-220); MAGNESIUM 1.7 mg/dl (1.7-2.5); PHOSPHORUS 4.4 mg/dl (2.5-4.9); POTASSIUM 3.7 mmol/L (3.5-5.1); SODIUM 145 mmol/L (135-144)
[2017-05-11] MEDS: BUDESONIDE (NEB) 0.25 MG/2 ML AMP HHN ×3 (08:19→20:00)
[2017-05-11] MEDS: DOCUSATE SODIUM 10 MG/ML (10ML CUP) PO ×2 (08:25→20:56)
[2017-05-11] MEDS: CREON (12k-38k-60k) 1 CAP PO (08:25)
[2017-05-11] MEDS: L ACIDOPHIL/B LACTIS/B LONGUM CAPSULE PO ×2 (08:25→20:56)
[2017-05-11] MEDS: SODIUM HYPOCHLORITE 0.125% 473 ML BTL IRR (08:26)
[2017-05-11] MEDS: CREON (24K-76K-120K) 1 CAP PO ×2 (13:46→18:12)
[2017-05-11] MEDS: DULOXETINE 30 MG CAP DR PO (20:56)
[2017-05-11] MEDS: SENNA TAB PO (20:56)
[2017-05-11] MEDS: LEVOFLOXACIN 500MG/D5W (PMX) 100 ML IVPB (20:56)
[2017-05-11] MEDS: DIPHENHYDRAMINE 50 MG CAP PO (21:29)
[2017-05-12] MEDS: PANTOPRAZOLE (EC) 40 MG TAB PO (06:53)
[2017-05-12] MEDS: L ACIDOPHIL/B LACTIS/B LONGUM CAPSULE PO ×2 (08:03→20:32)
[2017-05-12] MEDS: DOCUSATE SODIUM 10 MG/ML (10ML CUP) PO ×2 (08:03→20:31)
[2017-05-12] MEDS: CREON (24K-76K-120K) 1 CAP PO ×3 (08:03→17:25)
[2017-05-12] MEDS: SODIUM HYPOCHLORITE 0.125% 473 ML BTL IRR (08:08)
[2017-05-12] MEDS: BUDESONIDE (NEB) 0.25 MG/2 ML AMP HHN ×2 (10:30→20:24)
[2017-05-12] MEDS: DIPHENHYDRAMINE 50 MG CAP PO (20:31)
[2017-05-12] MEDS: LEVOFLOXACIN 500MG/D5W (PMX) 100 ML IVPB (20:31)
[2017-05-12] MEDS: DULOXETINE 30 MG CAP DR PO (20:32)
[2017-05-12] MEDS: ACETAMINOPHEN 500 MG TAB PO (20:32)
[2017-05-12] MEDS: DIPHENHYDRAMINE PO (20:32)
[2017-05-12] MEDS: SENNA TAB PO (20:32)
[2017-05-12] MEDS: [UNRECOGNIZED DRUG - OTHER] PO (20:32)
[2017-05-13] MEDS: PANTOPRAZOLE (EC) 40 MG TAB PO (06:24)
[2017-05-13] MEDS: CREON (24K-76K-120K) 1 CAP PO ×3 (07:58→17:23)
[2017-05-13] MEDS: L ACIDOPHIL/B LACTIS/B LONGUM CAPSULE PO ×2 (08:00→20:30)
[2017-05-13] MEDS: DOCUSATE SODIUM 10 MG/ML (10ML CUP) PO ×2 (08:00→20:32)
[2017-05-13] MEDS: SODIUM HYPOCHLORITE 0.125% 473 ML BTL IRR (08:01)
[2017-05-13] MEDS: BUDESONIDE (NEB) 0.25 MG/2 ML AMP HHN ×2 (09:00→19:22)
[2017-05-13] MEDS: ACETAMINOPHEN 500 MG TAB PO ×2 (12:34→20:31)
[2017-05-13 14:50] LABS: ADD MAN DIFF? NO
[2017-05-13 14:53] LABS: WHITE BLOOD COUNT 15.6 10^3/ul (4.8-10.8)
[2017-05-13 14:53] LABS: ABNORMAL IP MESSAGE 1; BASOPHIL # 0.1 10^3/ul (0.0-0.1); BASOPHILS % 0.4 % (0.0-2.0); EOSINOPHILS # 0.3 10^3/ul (0.0-0.5); EOSINOPHILS % 1.7 % (0.0-7.0); HEMATOCRIT 30.7 % (42.0-52.0); HEMOGLOBIN 10.2 g/dl (14.0-18.0); LYMPHOCYTES % 32.1 % (15.0-51.0); MEAN CORPUSCULAR HEMOGLOBIN 30.8 pg (29.0-33.0); MEAN CORPUSCULAR HGB CONC 33.2 g/dl (32.0-37.0); MEAN CORPUSCULAR VOLUME 92.7 fl (82.0-101.0); MEAN PLATELET VOLUME 8.5 fl (7.4-10.4); MONOCYTE # 0.8 10^3/ul (0.3-0.9); MONOCYTES % 5.2 % (0.0-11.0); NEUTROPHIL # 9.4 10^3/ul (1.6-7.5); PLATELET COUNT 489 10^3/UL (140-415); POSITIVE DIFF @See below; RED BLOOD COUNT 3.31 10^6/ul (4.70-6.10); RED CELL DISTRIBUTION WIDTH 15.4 % (11.5-14.5)
[2017-05-13] MEDS ORDERED: LEVOFLOXACIN 500 MG TAB PO (18:00)
[2017-05-13] MEDS: SENNA TAB PO (20:27)
[2017-05-13] MEDS: TAMSULOSIN (SR) 0.4 MG CAP PO (20:27)
[2017-05-13] MEDS: LEVOFLOXACIN 500 MG TAB PO (20:27)
[2017-05-13] MEDS: DULOXETINE 30 MG CAP DR PO (20:27)
[2017-05-13] MEDS: DIPHENHYDRAMINE PO (20:28)
[2017-05-13] MEDS: [UNRECOGNIZED DRUG - OTHER] PO (20:28)
[2017-05-13] MEDS: DIPHENHYDRAMINE 50 MG CAP PO (23:20)
[2017-05-14] MEDS: PANTOPRAZOLE (EC) 40 MG TAB PO ×2 (05:28→06:07)
[2017-05-14 07:42] LABS: ADD MAN DIFF? NO
[2017-05-14 07:50] LABS: WHITE BLOOD COUNT 14.1 10^3/ul (4.8-10.8)
[2017-05-14 07:50] LABS: BASOPHIL # 0.1 10^3/ul (0.0-0.1); BASOPHILS % 0.6 % (0.0-2.0); EOSINOPHILS # 0.3 10^3/ul (0.0-0.5); EOSINOPHILS % 1.9 % (0.0-7.0); HEMATOCRIT 28.8 % (42.0-52.0); HEMOGLOBIN 9.4 g/dl (14.0-18.0); LYMPHOCYTES % 28.2 % (15.0-51.0); MEAN CORPUSCULAR HEMOGLOBIN 30.3 pg (29.0-33.0); MEAN CORPUSCULAR HGB CONC 32.6 g/dl (32.0-37.0); MEAN CORPUSCULAR VOLUME 92.9 fl (82.0-101.0); MEAN PLATELET VOLUME 8.7 fl (7.4-10.4); MONOCYTE # 0.8 10^3/ul (0.3-0.9); MONOCYTES % 5.7 % (0.0-11.0); NEUTROPHIL # 8.9 10^3/ul (1.6-7.5); PLATELET COUNT 430 10^3/UL (140-415); RED CELL DISTRIBUTION WIDTH 15.3 % (11.5-14.5)
[2017-05-14 08:14] LABS: ANION GAP 14 (8-16); BLOOD UREA NITROGEN 27 mg/dl (7-20); CALCIUM 9.1 mg/dl (8.4-10.2); CARBON DIOXIDE 28 mmol/L (21-31); CHLORIDE 102 mmol/L (97-110); CREATININE 0.99 mg/dl (0.61-1.24); GLUCOSE 101 mg/dl (70-220); MAGNESIUM 1.6 mg/dl (1.7-2.5); PHOSPHORUS 4.4 mg/dl (2.5-4.9); POTASSIUM 4.4 mmol/L (3.5-5.1); SODIUM 140 mmol/L (135-144)
[2017-05-14] MEDS: BUDESONIDE (NEB) 0.25 MG/2 ML AMP HHN ×2 (08:35→20:58)
[2017-05-14] MEDS: L ACIDOPHIL/B LACTIS/B LONGUM CAPSULE PO ×2 (08:53→21:22)
[2017-05-14] MEDS: SODIUM HYPOCHLORITE 0.125% 473 ML BTL IRR (08:53)
[2017-05-14] MEDS: DOCUSATE SODIUM 10 MG/ML (10ML CUP) PO ×2 (08:53→21:21)
[2017-05-14] MEDS: CREON (24K-76K-120K) 1 CAP PO ×3 (08:53→17:50)
[2017-05-14] MEDS: MAGNESIUM SULFATE 2 GM/50 ML 50 ML IVPB (12:58)
[2017-05-14] MEDS: SENNA TAB PO (21:00)
[2017-05-14] MEDS: TAMSULOSIN (SR) 0.4 MG CAP PO (21:20)
[2017-05-14] MEDS: DULOXETINE 30 MG CAP DR PO (21:20)
[2017-05-14] MEDS: LEVOFLOXACIN 500 MG TAB PO (21:21)
[2017-05-14] MEDS: ZOLPIDEM 5 MG TAB PO (21:22)
[2017-05-15] MEDS: PANTOPRAZOLE (EC) 40 MG TAB PO (06:24)
[2017-05-15 07:09] LABS: ADD MAN DIFF? NO
[2017-05-15 07:13] LABS: BASOPHIL # 0.1 10^3/ul (0.0-0.1); BASOPHILS % 0.6 % (0.0-2.0); EOSINOPHILS # 0.3 10^3/ul (0.0-0.5); EOSINOPHILS % 2.3 % (0.0-7.0); HEMATOCRIT 29.4 % (42.0-52.0); HEMOGLOBIN 9.7 g/dl (14.0-18.0); LYMPHOCYTES # 3.6 10^3/ul (0.8-2.9); LYMPHOCYTES % 30.4 % (15.0-51.0); MEAN CORPUSCULAR HEMOGLOBIN 30.4 pg (29.0-33.0); MEAN CORPUSCULAR VOLUME 92.2 fl (82.0-101.0); MEAN PLATELET VOLUME 8.7 fl (7.4-10.4); MONOCYTE # 0.7 10^3/ul (0.3-0.9); MONOCYTES % 5.9 % (0.0-11.0); NEUTROPHIL # 7.2 10^3/ul (1.6-7.5); NEUTROPHILS % 60.5 % (39.0-77.0); PLATELET COUNT 405 10^3/UL (140-415); RED BLOOD COUNT 3.19 10^6/ul (4.70-6.10); RED CELL DISTRIBUTION WIDTH 15.3 % (11.5-14.5)
[2017-05-15] MEDS: DOCUSATE SODIUM 10 MG/ML (10ML CUP) PO ×2 (08:55→20:18)
[2017-05-15] MEDS: CREON (24K-76K-120K) 1 CAP PO ×3 (08:55→17:39)
[2017-05-15] MEDS: SODIUM HYPOCHLORITE 0.125% 473 ML BTL IRR (08:56)
[2017-05-15] MEDS: L ACIDOPHIL/B LACTIS/B LONGUM CAPSULE PO ×2 (09:00→20:22)
[2017-05-15] MEDS: BUDESONIDE (NEB) 0.25 MG/2 ML AMP HHN ×2 (09:25→19:44)
[2017-05-15] MEDS: ACETAMINOPHEN 500 MG TAB PO (19:37)
[2017-05-15] MEDS: ZOLPIDEM 5 MG TAB PO (20:16)
[2017-05-15] MEDS: TAMSULOSIN (SR) 0.4 MG CAP PO (20:17)
[2017-05-15] MEDS: DULOXETINE 30 MG CAP DR PO (20:17)
[2017-05-15] MEDS: LEVOFLOXACIN 500 MG TAB PO (20:17)
[2017-05-15] MEDS: SENNA TAB PO (20:17)
[2017-05-16] MEDS: PANTOPRAZOLE (EC) 40 MG TAB PO (06:25)
[2017-05-16] MEDS: L ACIDOPHIL/B LACTIS/B LONGUM CAPSULE PO (08:09)
[2017-05-16] MEDS: CREON (24K-76K-120K) 1 CAP PO (08:09)
[2017-05-16] MEDS: SODIUM HYPOCHLORITE 0.125% 473 ML BTL IRR (08:10)
[2017-05-16] MEDS: DOCUSATE SODIUM 10 MG/ML (10ML CUP) PO (08:10)
== END 2017-05-16 09:40 | disposition home health service (06) | DRG 949 ==
LOC: VRC 05-13 11:01
PROC: F07Z5FZ Bed Mobility Treatment using Assistive, Adaptive, Supportive or Protective Equipment (ICD-10-PCS; principal; 2017-05-09)
PROC: F07Z8FZ Transfer Training Treatment using Assistive, Adaptive, Supportive or Protective Equipment (ICD-10-PCS; 2017-05-09)
PROC: F07Z9FZ Gait Training/Functional Ambulation Treatment using Assistive, Adaptive, Supportive or Protective Equipment (ICD-10-PCS; 2017-05-09)
PROC: F08Z2FZ Grooming/Personal Hygiene Treatment using Assistive, Adaptive, Supportive or Protective Equipment (ICD-10-PCS; 2017-05-09)
PROC: F08Z1FZ Dressing Techniques Treatment using Assistive, Adaptive, Supportive or Protective Equipment (ICD-10-PCS; 2017-05-09)
PROC: F08Z0FZ Bathing/Showering Techniques Treatment using Assistive, Adaptive, Supportive or Protective Equipment (ICD-10-PCS; 2017-05-09)
DX: Z48.815 Encounter for surgical aftercare following surgery on the digestive system (principal); G92 Toxic encephalopathy; N17.9 Acute kidney failure, unspecified; N39.0 Urinary tract infection, site not specified; R13.12 Dysphagia, oropharyngeal phase; I10 Essential (primary) hypertension; M79.7 Fibromyalgia; E83.42 Hypomagnesemia; K59.00 Constipation, unspecified; R62.7 Adult failure to thrive; H91.90 Unspecified hearing loss, unspecified ear; B96.20 Unspecified Escherichia coli [E. coli] as the cause of diseases classified elsewhere; D64.9 Anemia, unspecified; E88.09 Other disorders of plasma-protein metabolism, not elsewhere classified; N40.0 Benign prostatic hyperplasia without lower urinary tract symptoms; F06.31 Mood disorder due to known physiological condition with depressive features; F06.8 Other specified mental disorders due to known physiological condition
CPT/HCPCS: 71045; 74230; 80048; 80053; 81003; 82270; 83735; 84100; 85025; 87081; 87086; 92507; 92523; 92526; 92610; 92611; 94640; 94664; 97110; 97116; 97163; 97167; 97530; 97535; 97542